=== PATIENT | female | born 1985 | race Caucasian/White ===

== ENCOUNTER 2016-12-09 00:11 | Emergency (ER) | payer MEDICARE ==
[2016-12-09 01:21] LABS: HEMOGLOBIN 14.1 gm/dl (12.3-15.3); RED BLOOD COUNT 4.51 M/UL (4.00-5.10); WHITE BLOOD COUNT 12.1 K/UL (4.5-11.0)
[2016-12-09 01:40] LABS: BUN/CREATININE RATIO 17 (0-10)
== END 2016-12-09 02:45 | disposition home or self-care (01) ==
LOC: ER1 00:11
PROVIDERS: Specialist/Technologist Athletic Trainer
DX: N39.0 Urinary tract infection, site not specified (principal); F17.210 Nicotine dependence, cigarettes, uncomplicated; Z90.49 Acquired absence of other specified parts of digestive tract
CPT/HCPCS: 36415; 80053; 81001; 83605; 83690; 85025; 87077; 87086; 87186; 96374; 96375; 99284; J0696; J1885; J2270; J2405; J7030; J7050